=== PATIENT | male | born 1985 | race Asian ===

== ENCOUNTER 2020-11-05 08:00 | Outpatient (CLI) | payer OTHER | END 2020-11-05 23:59 | disposition home or self-care (01) | LOC: LAB.R 08:00 | PROVIDERS: ATTEND Family Medicine | DX: R39.9 Unspecified symptoms and signs involving the genitourinary system (principal) | CPT/HCPCS: 87086 ==

== ENCOUNTER 2023-05-02 04:16 | Outpatient (CLI) | payer OTHER | END 2023-05-02 04:17 | disposition EMS.NT | LOC: EMS 04:16 | DX: S69.91XA Unspecified injury of right wrist, hand and finger(s), initial encounter (principal); V89.2XXA Person injured in unspecified motor-vehicle accident, traffic, initial encounter; Y93.89 Activity, other specified; Y92.410 Unspecified street and highway as the place of occurrence of the external cause ==